=== PATIENT | female | born 1955 | race Caucasian/White ===

== ENCOUNTER 2021-02-10 10:20 | Observation (INO) ==
[2021-02-10] MEDS ORDERED: ASPIRIN 325 MG TABLET PO STA (11:22)
[2021-02-10 14:17] LABS: Basophils # 0.1 10*3/uL (0.0-0.2); Basophils % 0.8 % (0.0-0.8); Eosinophils # 0.1 10*3/uL (0.0-0.87); Eosinophils % 0.9 % (0.00-10.9); Hematocrit 47.8 VOL% (35.7-47.0); Hemoglobin 15.6 GM/DL (12.0-16.0); Immature Granulocytes % 0.2 %; Immature Granulocytes Absolute 0.02 #; Lymphocytes # 2.4 10*3/uL (1.4-4.0); Lymphocytes % 24.6 % (21.3-54.2); Mean Corpuscular HGB Conc 32.6 GM/DL (32-36); Mean Platelet Volume 11.6 FL (9.6-12.0); Monocytes % 6.8 % (1.7-12.7); Neutrophils % 66.7 % (38.7-73.9); Platelet Count 348 T/CUMM (130-400); Red Blood Count 5.69 MC/CUMM (3.8-5.5); Red Cell Distribution Width 14.9 % (9.3-17.3); White Blood Count 9.6 T/CUMM (4-12)
[2021-02-10] MEDS ORDERED: SODIUM CHLORIDE 0.9% 1,000 ML IV STA ×2 (14:19→16:08)
[2021-02-10 14:25] LABS: PT Patient Result 11.1 SECS (10.5-12.0); Partial Thromboplastin Time 26.2 SECS (23.9-33.8)
[2021-02-10 14:36] LABS: Albumin 3.8 G/DL (3.4-5.0); Bilirubin,Total 0.5 MG/DL (0.20-1.00); Calcium 10.5 MG/DL (8.5-10.1); Osmolality,Calculated 279.4 MOS/KG (273-304); Potassium 3.9 MMOL/L (3.5-5.1); Total Protein 8.5 G/DL (6.4-8.2)
[2021-02-10 14:43] LABS: Ferritin 48.4 ng/ml (8-252)
[2021-02-10] MEDS ORDERED: ONDANSETRON 4 MG/2 ML VIAL IV STA (16:07)
[2021-02-10 16:15] LABS: Bacteria,Urine Occasional /HPF (Few); Bilirubin,Urine Negative (Negative); Blood, Urine Negative (Negative); Glucose,Urine (UA) Negative (Negative); Hyaline Casts,Urine 22 /LPF (0-3); Ketones,Urine Negative (Negative); Mucus,Urine Occasional /LPF (Occasional); Nitrite,Urine Negative (Negative); Protein,Urine Negative; RBC,Urine 2 /HPF (0-4); Squamous Epithelial Cell,Urine Occasional /HPF (0-10); Urine Appearance CLEAR (Clear); Urine Color Yellow (Yellow); Urine Specific Gravity 1.011 (1.001-1.035); Urine Urobilinogen < 2.0 EU/DL (0.2-1.0)
[2021-02-10] MEDS ORDERED: DEXTROSE 50% 25 GM/50 ML VIAL IV PRN (16:32)
[2021-02-10] MEDS ORDERED: GLUCAGON 1 MG VIAL IM PRN (16:32)
[2021-02-10] MEDS ORDERED: ACETAMINOPHEN 325 MG TABLET PO PRN (16:32)
[2021-02-10] MEDS ORDERED: guaiFENesin/DM ER 600-30 MG TABLET PO PRN (16:32)
[2021-02-10] MEDS ORDERED: LACTULOSE 20 GM/30 ML UDCUP PO PRN (16:32)
[2021-02-10] MEDS ORDERED: LORazepam 2 MG/1 ML VIAL IV PRN (16:36)
[2021-02-10] MEDS: SODIUM CHLORIDE 0.9% 1,000 ML IV SCH (17:09)
[2021-02-10] MEDS: ENOXAPARIN 40 MG/0.4 ML SYRINGE SUBCUT SCH (17:09)
[2021-02-10] MEDS: hydrALAZINE 20 MG/1 ML VIAL IV PRN (17:49)
[2021-02-10] MEDS: cefTRIAXone 1,000 MG in SODIUM CHLORIDE 0.9% 100 ML IV SCH (17:49)
[2021-02-10] MEDS: ONDANSETRON 4 MG/2 ML VIAL IV PRN (18:31)
[2021-02-10] MEDS ORDERED: PROMETHAZINE INJ 25 MG in SODIUM CHLORIDE 0.9% 50 ML IV PRN ×2 (19:44→19:48)
[2021-02-10] MEDS: ALBUTEROL/IPRATROPIUM 3 ML NEB RESP TX SCH (20:08)
[2021-02-10] MEDS: AZITHROMYCIN INJ 500 MG in SODIUM CHLORIDE 0.9% 250 ML IV SCH (20:45)
[2021-02-10] MEDS: INSULIN LISPRO 100 UNIT/ML SUBCUT SCH (23:12)
[2021-02-10] MEDS: SODIUM BICARBONATE 650 MG TABLET PO SCH (23:15)
[2021-02-11] MEDS: ALBUTEROL/IPRATROPIUM 3 ML NEB RESP TX SCH ×4 (00:30→19:55)
[2021-02-11] MEDS ORDERED: ZALEPLON 5 MG CAPSULE PO STA (02:57)
[2021-02-11] MEDS: hydrALAZINE 20 MG/1 ML VIAL IV PRN ×2 (03:31→23:52)
[2021-02-11] MEDS ORDERED: LABETALOL 20 MG/4 ML SYRINGE IV ONE (03:38)
[2021-02-11 05:09] LABS: Basophils % 0.3 % (0.0-0.8); Hematocrit 39.2 VOL% (35.7-47.0); Immature Granulocytes % 0.7 %; Immature Granulocytes Absolute 0.09 #; Lymphocytes # 0.9 10*3/uL (1.4-4.0); Mean Corpuscular HGB Conc 31.9 GM/DL (32-36); Mean Corpuscular Volume 84.8 FL (87-102); Mean Platelet Volume 11.3 FL (9.6-12.0); Monocytes % 2.5 % (1.7-12.7); Neutrophils % 89.5 % (38.7-73.9); Platelet Count 295 T/CUMM (130-400); Red Blood Count 4.62 MC/CUMM (3.8-5.5); Red Cell Distribution Width 15.2 % (9.3-17.3)
[2021-02-11 05:11] LABS: Hemoglobin 12.5 GM/DL (12.0-16.0); White Blood Count 13.3 T/CUMM (4-12)
[2021-02-11 05:47] LABS: Calcium 8.7 MG/DL (8.5-10.1); Osmolality,Calculated 293.3 MOS/KG (273-304); Potassium 4.4 MMOL/L (3.5-5.1); Thyroid Stimulating Hormone 0.484 uIU/ml (0.358-3.74)
[2021-02-11] MEDS: SODIUM CHLORIDE 0.9% 1,000 ML IV SCH ×3 (06:00→20:35)
[2021-02-11] MEDS: PANTOPRAZOLE 40 MG TABLET PO SCH (08:55)
[2021-02-11] MEDS: INSULIN LISPRO 100 UNIT/ML SUBCUT SCH ×4 (08:55→20:34)
[2021-02-11] MEDS: LISINOPRIL/HCTZ 20-25 MG TABLET PO SCH (08:55)
[2021-02-11] MEDS: SODIUM BICARBONATE 650 MG TABLET PO SCH ×3 (08:56→20:34)
[2021-02-11] MEDS: LABETALOL INJ 200 MG in SODIUM CHLORIDE 0.9% 160 ML IV SCH (09:40)
[2021-02-11] MEDS ORDERED: MAGNESIUM SULF RIDER 2 GM/50 ML PREMIX IV ONE (13:51)
[2021-02-11] MEDS: cefTRIAXone 1,000 MG in SODIUM CHLORIDE 0.9% 100 ML IV SCH (16:45)
[2021-02-11] MEDS: ENOXAPARIN 40 MG/0.4 ML SYRINGE SUBCUT SCH (16:52)
[2021-02-11] MEDS: AZITHROMYCIN INJ 500 MG in SODIUM CHLORIDE 0.9% 250 ML IV SCH (20:34)
[2021-02-12] MEDS: ALBUTEROL/IPRATROPIUM 3 ML NEB RESP TX SCH ×4 (01:47→19:17)
[2021-02-12] MEDS: SODIUM CHLORIDE 0.9% 1,000 ML IV SCH (05:01)
[2021-02-12] MEDS: hydrALAZINE 20 MG/1 ML VIAL IV PRN (05:32)
[2021-02-12 05:37] LABS: Basophils # 0.1 10*3/uL (0.0-0.2); Basophils % 0.7 % (0.0-0.8); Eosinophils % 0.4 % (0.00-10.9); Hemoglobin 12.2 GM/DL (12.0-16.0); Immature Granulocytes % 0.7 %; Immature Granulocytes Absolute 0.07 #; Lymphocytes % 21.4 % (21.3-54.2); Mean Corpuscular HGB Conc 32.1 GM/DL (32-36); Mean Corpuscular Volume 85.4 FL (87-102); Mean Platelet Volume 11.6 FL (9.6-12.0); Monocytes % 7.2 % (1.7-12.7); Neutrophils % 69.6 % (38.7-73.9); Platelet Count 242 T/CUMM (130-400); Red Blood Count 4.45 MC/CUMM (3.8-5.5); Red Cell Distribution Width 15.6 % (9.3-17.3); White Blood Count 9.3 T/CUMM (4-12)
[2021-02-12 05:45] LABS: Calcium 8.7 MG/DL (8.5-10.1); Osmolality,Calculated 283.5 MOS/KG (273-304); Potassium 3.4 MMOL/L (3.5-5.1)
[2021-02-12] MEDS ORDERED: LACTATED RINGERS 1,000 ML IV SCH (07:30)
[2021-02-12] MEDS: INSULIN LISPRO 100 UNIT/ML SUBCUT SCH ×3 (08:11→16:14)
[2021-02-12] MEDS: amLODIPine 5 MG TABLET PO SCH (08:29)
[2021-02-12] MEDS: SODIUM BICARBONATE 650 MG TABLET PO SCH ×3 (08:29→23:29)
[2021-02-12] MEDS: LABETALOL INJ 200 MG in SODIUM CHLORIDE 0.9% 160 ML IV SCH (08:30)
[2021-02-12] MEDS: LISINOPRIL/HCTZ 20-25 MG TABLET PO SCH (08:30)
[2021-02-12] MEDS: ASPIRIN EC 81 MG TABLET PO SCH (08:30)
[2021-02-12] MEDS: PANTOPRAZOLE 40 MG TABLET PO SCH (08:30)
[2021-02-12] MEDS ORDERED: carvediloL 6.25 MG TABLET PO SCH (09:00)
[2021-02-12] MEDS: POTASSIUM CHLORIDE 20 MEQ TABLET PO SCH ×2 (12:15→23:29)
[2021-02-12] MEDS: ASCORBIC ACID 500 MG TABLET PO SCH ×2 (12:37→23:29)
[2021-02-12] MEDS: carvediloL 25 MG TABLET PO SCH (16:13)
[2021-02-12] MEDS: cefTRIAXone 1,000 MG in SODIUM CHLORIDE 0.9% 100 ML IV SCH (17:03)
[2021-02-12] MEDS: AZITHROMYCIN INJ 500 MG in SODIUM CHLORIDE 0.9% 250 ML IV SCH (23:28)
[2021-02-13] MEDS: ALBUTEROL/IPRATROPIUM 3 ML NEB RESP TX SCH ×2 (00:03→09:51)
[2021-02-13 02:09] LABS: Barbiturates Screen,Urine Negative (Negative); Benzodiazepines Screen,Urine Negative (Negative); Cannabinoid Screen,Urine Negative (Negative); Opiate Screen,Urine Positive (Negative); Phencyclidine Screen,Urine Negative (Negative)
[2021-02-13] MEDS: INSULIN LISPRO 100 UNIT/ML SUBCUT SCH ×3 (07:15→11:42)
[2021-02-13] MEDS: LABETALOL INJ 200 MG in SODIUM CHLORIDE 0.9% 160 ML IV SCH (08:39)
[2021-02-13] MEDS ORDERED: LOSARTAN 50 MG TABLET PO SCH (09:00)
[2021-02-13] MEDS ORDERED: CLOPIDOGREL 75 MG TABLET PO SCH (09:00)
[2021-02-13] MEDS: PANTOPRAZOLE 40 MG TABLET PO SCH (09:29)
[2021-02-13] MEDS: SODIUM BICARBONATE 650 MG TABLET PO SCH (09:29)
[2021-02-13] MEDS: amLODIPine 5 MG TABLET PO SCH (09:29)
[2021-02-13] MEDS: carvediloL 25 MG TABLET PO SCH (09:29)
[2021-02-13] MEDS: ASCORBIC ACID 500 MG TABLET PO SCH (09:29)
[2021-02-13] MEDS: ASPIRIN EC 81 MG TABLET PO SCH (09:30)
[2021-02-13] MEDS: POTASSIUM CHLORIDE 20 MEQ TABLET PO SCH (09:30)
[2021-02-13] MEDS ORDERED: REGADENOSON 0.4 MG/5 ML SYRINGE IV ONE (09:49)
[2021-02-13 10:42] LABS: Calcium 9.3 MG/DL (8.5-10.1); Osmolality,Calculated 283.5 MOS/KG (273-304); Potassium 3.8 MMOL/L (3.5-5.1)
[2021-02-13] MEDS: ONDANSETRON 4 MG/2 ML VIAL IV PRN (10:55)
[2021-02-13 12:40] VITALS: BP 142/66
== END 2021-02-13 13:43 | disposition home health service (06) ==
LOC: N.EDINP 10:20 → N.ED 10:20 → SUATTDRO 16:32 → N.EDINP 02-11 11:20 → N.TELES 02-11 11:32
PROVIDERS: ADMIT Internal Medicine; ATTEND Internal Medicine

== ENCOUNTER 2021-04-01 14:44 | Observation (INO) ==
[2021-04-01] MEDS ORDERED: SODIUM CHLORIDE 0.9% 1,000 ML IV STA (15:13)
[2021-04-01 15:31] LABS: Basophils # 0.1 10*3/uL (0.0-0.2); Basophils % 1.2 % (0.0-0.8); Eosinophils # 0.3 10*3/uL (0.0-0.87); Eosinophils % 2.2 % (0.00-10.9); Hematocrit 35.4 VOL% (35.7-47.0); Hemoglobin 11.7 GM/DL (12.0-16.0); Immature Granulocytes % 0.5 %; Immature Granulocytes Absolute 0.06 #; Lymphocytes # 1.3 10*3/uL (1.4-4.0); Lymphocytes % 10.3 % (21.3-54.2); Mean Corpuscular HGB Conc 33.1 GM/DL (32-36); Mean Corpuscular Volume 87.6 FL (87-102); Mean Platelet Volume 10.7 FL (9.6-12.0); Monocytes % 5.6 % (1.7-12.7); Neutrophils % 80.2 % (38.7-73.9); Platelet Count 322 T/CUMM (130-400); Red Blood Count 4.04 MC/CUMM (3.8-5.5); Red Cell Distribution Width 13.5 % (9.3-17.3); White Blood Count 12.1 T/CUMM (4-12)
[2021-04-01 17:09] LABS: Calcium 9.2 MG/DL (8.5-10.1); Osmolality,Calculated 290.2 MOS/KG (273-304); Potassium 4.2 MMOL/L (3.5-5.1)
[2021-04-01] MEDS: SODIUM CHLORIDE 0.9% 1,000 ML IV SCH (17:50)
[2021-04-01] MEDS ORDERED: ACETAMINOPHEN 325 MG TABLET PO PRN (17:56)
[2021-04-01] MEDS ORDERED: DEXTROSE 50% 25 GM/50 ML VIAL IV PRN (17:56)
[2021-04-01] MEDS ORDERED: DOCUSATE SODIUM 100 MG CAPSULE PO PRN (17:56)
[2021-04-01] MEDS ORDERED: GLUCAGON 1 MG VIAL IM PRN (17:56)
[2021-04-01] MEDS ORDERED: ONDANSETRON 4 MG/2 ML VIAL IV PRN (17:56)
[2021-04-01 18:09] LABS: Bilirubin,Urine Negative (Negative); Blood, Urine Negative (Negative); Glucose,Urine (UA) 150 mg/dL (Negative); Hyaline Casts,Urine 19 /LPF (0-3); Ketones,Urine Negative (Negative); Mucus,Urine Occasional /LPF (Occasional); Nitrite,Urine Negative (Negative); Protein,Urine 30 MG/DL; RBC,Urine 1 /HPF (0-4); Squamous Epithelial Cell,Urine Occasional /HPF (0-10); Urine Appearance CLOUDY (Clear); Urine Color Amber (Yellow); Urine Specific Gravity 1.024 (1.001-1.035); Urine Urobilinogen < 2.0 EU/DL (0.2-1.0)
[2021-04-01] MEDS ORDERED: INSULIN LISPRO 100 UNIT/ML SUBCUT ONE (18:34)
[2021-04-01 19:58] LABS: Protein/Creatinine Ratio,Urine 0.2 RATIO
[2021-04-01] MEDS ORDERED: carvediloL 25 MG TABLET PO SCH (21:00)
[2021-04-01] MEDS: INSULIN LISPRO 100 UNIT/ML SUBCUT SCH (21:22)
[2021-04-01] MEDS: ASCORBIC ACID 500 MG TABLET PO SCH (21:22)
[2021-04-02] MEDS: SODIUM CHLORIDE 0.9% 1,000 ML IV SCH ×2 (01:57→08:30)
[2021-04-02 05:17] LABS: Basophils # 0.1 10*3/uL (0.0-0.2); Basophils % 1.1 % (0.0-0.8); Eosinophils # 0.3 10*3/uL (0.0-0.87); Eosinophils % 4.8 % (0.00-10.9); Hematocrit 29.7 VOL% (35.7-47.0); Hemoglobin 9.8 GM/DL (12.0-16.0); Immature Granulocytes % 0.3 %; Immature Granulocytes Absolute 0.02 #; Lymphocytes % 29.9 % (21.3-54.2); Mean Corpuscular Volume 88.7 FL (87-102); Mean Platelet Volume 10.7 FL (9.6-12.0); Monocytes % 8.6 % (1.7-12.7); Neutrophils % 55.3 % (38.7-73.9); Platelet Count 230 T/CUMM (130-400); Red Blood Count 3.35 MC/CUMM (3.8-5.5); Red Cell Distribution Width 13.6 % (9.3-17.3); White Blood Count 6.6 T/CUMM (4-12)
[2021-04-02 05:39] LABS: Calcium 7.9 MG/DL (8.5-10.1); Osmolality,Calculated 290.7 MOS/KG (273-304); Potassium 3.9 MMOL/L (3.5-5.1)
[2021-04-02 05:40] LABS: Eosinophils 4 % (0-10); Hypochromasia 1+; Lymphocytes 32 % (20-55); Microcytosis 1+; Platelet Estimate Adequate; Segmented Neutrophils 61 % (50-85); Total Cells Counted 100
[2021-04-02] MEDS: INSULIN LISPRO 100 UNIT/ML SUBCUT SCH ×4 (08:30→23:34)
[2021-04-02] MEDS: ASCORBIC ACID 500 MG TABLET PO SCH ×2 (08:30→21:01)
[2021-04-02] MEDS: CLOPIDOGREL 75 MG TABLET PO SCH (08:31)
[2021-04-02] MEDS: ASPIRIN CHEW 81 MG TABLET PO SCH (08:31)
[2021-04-02] MEDS: PANTOPRAZOLE 40 MG TABLET PO SCH (08:31)
[2021-04-02] MEDS ORDERED: LOSARTAN 50 MG TABLET PO SCH (09:00)
[2021-04-02] MEDS ORDERED: amLODIPine 10 MG TABLET PO SCH (09:00)
[2021-04-02] MEDS: LACTATED RINGERS 1,000 ML IV SCH ×2 (13:21→21:03)
[2021-04-02] MEDS ORDERED: metFORMIN 500 MG TABLET PO SCH (17:00)
[2021-04-03] MEDS: LACTATED RINGERS 1,000 ML IV SCH (04:42)
[2021-04-03 05:50] LABS: Basophils # 0.1 10*3/uL (0.0-0.2); Basophils % 1.5 % (0.0-0.8); Eosinophils # 0.4 10*3/uL (0.0-0.87); Eosinophils % 5.9 % (0.00-10.9); Hematocrit 31.3 VOL% (35.7-47.0); Hemoglobin 10.1 GM/DL (12.0-16.0); Immature Granulocytes % 0.4 %; Immature Granulocytes Absolute 0.03 #; Lymphocytes # 2.1 10*3/uL (1.4-4.0); Mean Corpuscular HGB Conc 32.3 GM/DL (32-36); Mean Corpuscular Volume 89.4 FL (87-102); Mean Platelet Volume 10.9 FL (9.6-12.0); Monocytes % 10.3 % (1.7-12.7); Neutrophils % 52.9 % (38.7-73.9); Platelet Count 244 T/CUMM (130-400); Red Cell Distribution Width 14.1 % (9.3-17.3); White Blood Count 7.2 T/CUMM (4-12)
[2021-04-03 06:16] LABS: Calcium 8.8 MG/DL (8.5-10.1); Osmolality,Calculated 288.3 MOS/KG (273-304); Potassium 4.3 MMOL/L (3.5-5.1)
[2021-04-03 06:17] LABS: Hypochromasia 1+; Microcytosis 1+; Platelet Estimate Normal
[2021-04-03] MEDS: ASPIRIN CHEW 81 MG TABLET PO SCH (08:56)
[2021-04-03] MEDS: ASCORBIC ACID 500 MG TABLET PO SCH (08:56)
[2021-04-03] MEDS: CLOPIDOGREL 75 MG TABLET PO SCH (08:56)
[2021-04-03] MEDS: PANTOPRAZOLE 40 MG TABLET PO SCH (08:56)
[2021-04-03] MEDS: INSULIN LISPRO 100 UNIT/ML SUBCUT SCH ×2 (08:57→11:14)
[2021-04-03 11:32] VITALS: BP 144/94
== END 2021-04-03 11:50 | disposition home or self-care (01) ==
LOC: N.ED 14:44 → N.EDINP 14:44 → N.3E 20:16
PROVIDERS: ADMIT Internal Medicine; ATTEND Internal Medicine

== ENCOUNTER 2022-02-18 06:59 | Inpatient (IN) ==
[2022-02-18] MEDS ORDERED: ONDANSETRON 4 MG/2 ML VIAL IV STA (07:47)
[2022-02-18] MEDS ORDERED: SODIUM CHLORIDE 0.9% 1,000 ML IV STA ×2 (07:47→09:22)
[2022-02-18 07:56] LABS: Basophils # 0.1 10*3/uL (0.0-0.2); Basophils % 0.9 % (0.0-0.8); Eosinophils # 0.1 10*3/uL (0.0-0.87); Eosinophils % 1.1 % (0.00-10.9); Hematocrit 37.5 VOL% (35.7-47.0); Hemoglobin 12.4 GM/DL (12.0-16.0); Immature Granulocytes % 0.4 %; Immature Granulocytes Absolute 0.03 #; Lymphocytes # 1.4 10*3/uL (1.4-4.0); Lymphocytes % 17.7 % (21.3-54.2); Mean Corpuscular HGB Conc 33.1 GM/DL (32-36); Mean Corpuscular Volume 87.2 FL (87-102); Mean Platelet Volume 11.1 FL (9.6-12.0); Monocytes # 0.6 10*3/uL (0.11-0.8); Monocytes % 7.9 % (1.7-12.7); Platelet Count 264 T/CUMM (130-400); Red Cell Distribution Width 12.8 % (9.3-17.3); White Blood Count 8.2 T/CUMM (4-12)
[2022-02-18 08:08] LABS: Alanine Aminotransferase 50 U/L (13-56); Albumin 3.3 G/DL (3.4-5.0); Alkaline Phosphatase 130 U/L (45-117); Aspartate Amino Transferase 28 U/L (0-37); Bilirubin,Total < 0.39 MG/DL (0.20-1.00); Blood Urea Nitrogen 65 MG/DL (7-18); Calcium 8.8 MG/DL (8.5-10.1); Carbon Dioxide 17 MMOL/L (21-32); Chloride 105 MMOL/L (98-107); Glucose 402 MG/DL (74-106); Osmolality,Calculated 305.1 MOS/KG (273-304); Potassium 3.7 MMOL/L (3.5-5.1); Sodium 135 MMOL/L (136-145)
[2022-02-18 08:19] LABS: Amorphous Crystals,Urine Few /HPF (Few); Bacteria,Urine Occasional /HPF (Few); Hyaline Casts,Urine 40 /LPF (0-3); Mucus,Urine Few /LPF (Occasional); RBC,Urine <1 /HPF (0-4); Squamous Epithelial Cell,Urine Occasional /HPF (0-10)
[2022-02-18 08:20] LABS: Bilirubin,Urine Small mg/dL (Negative); Blood, Urine Negative (Negative); Glucose,Urine (UA) 100 mg/dL (Negative); Ketones,Urine Trace mg/dL (Negative); Nitrite,Urine Negative (Negative); Protein,Urine 30 mg/dL (Negative); Urine Appearance Clear (Clear); Urine Color Yellow (Yellow); Urine Urobilinogen 0.2 eU/dL (<2.0); Urine pH 5.5 (4.5-8.0)
[2022-02-18] MEDS ORDERED: ALBUTEROL 2.5 MG/3 ML NEB RESP TX PRN (09:22)
[2022-02-18] MEDS ORDERED: ONDANSETRON 4 MG/2 ML VIAL IV PRN (09:22)
[2022-02-18] MEDS ORDERED: SODIUM BICARBONATE 50 MEQ/50 ML VIAL IV STA (09:24)
[2022-02-18 09:40] LABS: Arterial Base Excess iSTAT -12 MMOL/L (-2.5-2.5); Arterial Bicarbonate iSTAT 14.8 MMOL/L (20-26); Arterial O2 Saturation iSTAT 99 % (95-100); Arterial PCO2 iSTAT 35 MM HG (35-48); Arterial PO2 iSTAT 148 MM HG (80-95); Arterial Total CO2 iSTAT 16 MMO/L (23-27); Arterial pH iSTAT 7.235 (7.35-7.45)
[2022-02-18] MEDS: INSULIN GLARGINE 100 UNIT/ML SUBCUT SCH (10:10)
[2022-02-18] MEDS: FAMOTIDINE 20 MG/2 ML VIAL IV SCH ×2 (10:14→20:45)
[2022-02-18] MEDS: SODIUM CHLORIDE 0.9% 1,000 ML IV SCH ×3 (10:21→22:46)
[2022-02-18] MEDS: INSULIN LISPRO 100 UNIT/ML SUBCUT SCH ×4 (10:22→21:03)
[2022-02-18] MEDS ORDERED: LOPERAMIDE 2 MG CAPSULE PO PRN (10:42)
[2022-02-18 12:58] VITALS: BP 113/51
[2022-02-18] MEDS ORDERED: hydrALAZINE 20 MG/1 ML VIAL IV PRN (20:09)
[2022-02-18] MEDS ORDERED: METOPROLOL TARTRATE 5 MG/5 ML VIAL IV ONE (21:47)
[2022-02-18] MEDS ORDERED: ACETAMINOPHEN 325 MG TABLET PO PRN (21:48)
[2022-02-19] MEDS: INSULIN LISPRO 100 UNIT/ML SUBCUT SCH ×6 (02:08→20:58)
[2022-02-19] MEDS: SODIUM CHLORIDE 0.9% 1,000 ML IV SCH ×3 (02:12→10:04)
[2022-02-19 05:56] LABS: Basophils # 0.1 10*3/uL (0.0-0.2); Basophils % 0.9 % (0.0-0.8); Eosinophils # 0.1 10*3/uL (0.0-0.87); Eosinophils % 0.7 % (0.00-10.9); Hematocrit 40.5 VOL% (35.7-47.0); Hemoglobin 13.2 GM/DL (12.0-16.0); Immature Granulocytes % 0.3 %; Immature Granulocytes Absolute 0.03 #; Lymphocytes # 2.4 10*3/uL (1.4-4.0); Lymphocytes % 24.8 % (21.3-54.2); Mean Corpuscular HGB Conc 32.6 GM/DL (32-36); Mean Corpuscular Volume 89.6 FL (87-102); Mean Platelet Volume 10.9 FL (9.6-12.0); Monocytes # 0.7 10*3/uL (0.11-0.8); Monocytes % 7.5 % (1.7-12.7); Neutrophils % 65.8 % (38.7-73.9); Platelet Count 297 T/CUMM (130-400); Red Blood Count 4.52 MC/CUMM (3.8-5.5); Red Cell Distribution Width 12.9 % (9.3-17.3); White Blood Count 9.6 T/CUMM (4-12)
[2022-02-19 06:20] LABS: Albumin 3.4 G/DL (3.4-5.0); Bilirubin,Total 0.4 MG/DL (0.20-1.00); Calcium 8.3 MG/DL (8.5-10.1); Osmolality,Calculated 293.1 MOS/KG (273-304); Potassium 3.2 MMOL/L (3.5-5.1); Risk Ratio 3.97; Thyroid Stimulating Hormone 1.01 uIU/ml (0.358-3.74); VLDL Cholesterol 36.8 MG/DL
[2022-02-19] MEDS ORDERED: MAGNESIUM SULF RIDER 2 GM/50 ML PREMIX IV ONE (06:31)
[2022-02-19] MEDS: POTASSIUM CHLORIDE 20 MEQ TABLET PO PRN ×4 (06:42→16:00)
[2022-02-19] MEDS ORDERED: GLUCAGON 1 MG VIAL IM PRN (08:15)
[2022-02-19] MEDS ORDERED: DEXTROSE 10% 250 ML BAG IV PRN (08:17)
[2022-02-19] MEDS: FAMOTIDINE 20 MG/2 ML VIAL IV SCH (08:46)
[2022-02-19] MEDS: INSULIN GLARGINE 100 UNIT/ML SUBCUT SCH (08:47)
[2022-02-19] MEDS ORDERED: CYCLOBENZAPRINE 10 MG TABLET PO ONE (14:30)
[2022-02-19] MEDS: ASPIRIN EC 81 MG TABLET PO SCH (15:18)
[2022-02-19] MEDS: carvediloL 6.25 MG TABLET PO SCH ×2 (15:56→20:32)
[2022-02-19] MEDS ORDERED: CYCLOBENZAPRINE 10 MG TABLET PO SCH (21:00)
[2022-02-19] MEDS ORDERED: AMITRIPTYLINE 25 MG TABLET PO SCH (21:00)
[2022-02-20] MEDS: INSULIN LISPRO 100 UNIT/ML SUBCUT SCH ×2 (03:25→06:32)
[2022-02-20 05:29] LABS: Alanine Aminotransferase 37 U/L (13-56); Albumin 2.6 G/DL (3.4-5.0); Alkaline Phosphatase 114 U/L (45-117); Aspartate Amino Transferase 21 U/L (0-37); Bilirubin,Total < 0.39 MG/DL (0.20-1.00); Blood Urea Nitrogen 18 MG/DL (7-18); Calcium 7.9 MG/DL (8.5-10.1); Carbon Dioxide 19 MMOL/L (21-32); Chloride 118 MMOL/L (98-107); Glucose 229 MG/DL (74-106); Osmolality,Calculated 294.8 MOS/KG (273-304); Potassium 4.6 MMOL/L (3.5-5.1); Sodium 144 MMOL/L (136-145)
[2022-02-20] MEDS: carvediloL 6.25 MG TABLET PO SCH (08:39)
[2022-02-20] MEDS: FAMOTIDINE 20 MG/2 ML VIAL IV SCH (08:39)
[2022-02-20] MEDS: ASPIRIN EC 81 MG TABLET PO SCH (08:40)
[2022-02-20] MEDS: INSULIN GLARGINE 100 UNIT/ML SUBCUT SCH (08:40)
[2022-02-20] MEDS ORDERED: INFLUENZA VIRUS VACCINE 0.5 ML SYRINGE IM ONE (10:54)
== END 2022-02-20 11:08 | disposition home or self-care (01) | DRG 682 ==
LOC: N.ED 06:59 → N.EDINP 09:22 → N.CC 12:07
PROVIDERS: ADMIT Internal Medicine; ATTEND Internal Medicine